=== PATIENT | female | born 1990 | race Hispanic/Latino ===

== ENCOUNTER 2018-11-15 07:52 | Emergency (ER) | payer SELFPAY ==
[2018-11-15 08:33] LABS: #Basophils 0.1 thou/uL (0.0-0.2); #Eosinphils 0.2 thou/uL (0.0-0.7); #Lymphocytes 1.5 thou/uL (1.20-3.40); #Monocytes 0.5 thou/uL (0.11-0.59); %Basophils 0.9 % (0.0-1.0); %Lymphocytes 23.4 % (21.0-51.0); %Monocytes 7.9 % (0.0-10.0); %Neutrophils 64.8 % (42.0-75.0); Hemoglobin 14.9 g/dL (12.0-16.0); Mean Corpuscular HGB CONC 33.6 g/dL (32.0-36.0); Mean Corpuscular Hemoglobin 30.9 pg (27.0-31.0); Mean Corpuscular Volume 92.1 fL (78.0-98.0); Platelet Count 214 thou/uL (130-400); RBC Distribution Width 11.4 % (11.5-14.5); Red Blood Cell (RBC) Count 4.83 mill/uL (4.20-5.40); White Blood Cell (WBC) Count 6.2 thou/uL (4.8-10.8)
[2018-11-15 08:53] LABS: ALT (SGPT) 17 U/L (8-55); AST (SGOT) 14 U/L (5-34); Albumin 4.2 g/dL (3.5-5.0); Alkaline Phosphatase 66 U/L (40-150); Anion Gap 14 mmol/L (10-20); BUN (Urea Nitrogen) 15 mg/dL (7.0-18.7); Bilirubin, Total 0.7 mg/dL (0.2-1.2); Calc. Creatinine Clearance 0 mL/min (70-130); Calcium 8.8 mg/dL (7.8-10.44); Carbon Dioxide 22 mmol/L (22-29); Chloride 105 mmol/L (98-107); Estimated GFR-MDRD 84; Glucose 110 mg/dL (70-105); Lipase 12 U/L (8-78); Potassium 3.7 mmol/L (3.5-5.1); Protein, Total 7.2 g/dL (6.0-8.3); Sodium 137 mmol/L (136-145)
[2018-11-15 09:38] LABS: Bilirubin Negative (Negative); Blood, Urine Negative (Negative); Clarity CLEAR (Clear); Glucose, Urine (Dipstick) Negative (Negative); Leukocyte Negative (Negative); Nitrite Negative (Negative); Protein, Urine (Dipstick) Negative (Neg-Trace); Specific Gravity, Urine 1.027 (1.002-1.036); pH, Urine 6.5 (5.0-9.0)
[2018-11-15 10:05] LABS: Pregnancy Test - Urine (BHCG) Negative (Negative); Pregu Control Bar Appear? YES (CONTROL BAR); Specific Gravity 1.027 (1.002-1.036)
[2018-11-15 10:06] LABS: Pregu Control Background? CLEAR/WHITE (CLR/WHITE)
== END 2018-11-15 10:15 | disposition home or self-care (01) ==
LOC: ERS 07:52
DX: F41.9 Anxiety disorder, unspecified (principal); F32.9 Major depressive disorder, single episode, unspecified; Z87.891 Personal history of nicotine dependence
CPT/HCPCS: 36415; 80053; 81003; 81025; 83690; 84484; 85025; 93005

== ENCOUNTER 2019-03-29 10:10 | Emergency (ER) | payer SELFPAY ==
[~2019-03-29 10:10] MED LIST: ISOVUE-370 76%-LOCM 1 ML ONE
--- NOTE | 2019-03-29 10:51 | RAD ---
XR Chest 1 View Portable HISTORY: Chest pain COMPARISON: 10/10/2010 study FINDINGS: Heart size is within normal limits for portable technique. Subsegmental atelectatic change seen in the lung bases. No focal infiltrative process. Suboptimal inspiration. IMPRESSION: Subsegmental atelectasis in the lung bases probably on the basis of suboptimal inspiratio n.
[2019-03-29 11:03] LABS: #Basophils 0.1 thou/uL (0.0-0.2); #Eosinphils 0.1 thou/uL (0.0-0.7); #Lymphocytes 1.5 thou/uL (1.20-3.40); #Monocytes 0.6 thou/uL (0.11-0.59); #Neutrophils 4.9 thou/uL (1.40-6.50); %Basophils 0.7 % (0.0-1.0); %Eosinophils 1.3 % (0.0-10.0); %Lymphocytes 20.6 % (21.0-51.0); %Monocytes 8.9 % (0.0-10.0); %Neutrophils 68.4 % (42.0-75.0); Hemoglobin 15.5 g/dL (12.0-16.0); Mean Corpuscular HGB CONC 33.5 g/dL (32.0-36.0); Mean Corpuscular Hemoglobin 30.6 pg (27.0-31.0); Mean Corpuscular Volume 91.4 fL (78.0-98.0); Platelet Count 205 thou/uL (130-400); RBC Distribution Width 11.3 % (11.5-14.5); Red Blood Cell (RBC) Count 5.05 mill/uL (4.20-5.40); White Blood Cell (WBC) Count 7.1 thou/uL (4.8-10.8)
[2019-03-29 11:29] LABS: ALT (SGPT) 26 U/L (8-55); AST (SGOT) 17 U/L (5-34); Albumin 4.3 g/dL (3.5-5.0); Alkaline Phosphatase 60 U/L (40-150); Anion Gap 12 mmol/L (10-20); BUN (Urea Nitrogen) 13 mg/dL (7.0-18.7); Bilirubin, Total 0.7 mg/dL (0.2-1.2); CK (CPK) 31 U/L (29-168); Calc. Creatinine Clearance 0 mL/min (70-130); Calcium 9.8 mg/dL (7.8-10.44); Carbon Dioxide 23 mmol/L (22-29); Chloride 104 mmol/L (98-107); Estimated GFR-MDRD 90; Globulin 2.8 g/dL (2.4-3.5); Glucose 120 mg/dL (70-105); Potassium 4.3 mmol/L (3.5-5.1); Protein, Total 7.1 g/dL (6.0-8.3); Sodium 135 mmol/L (136-145)
[2019-03-29 11:53] LABS: BHCG - Serum Negative (NEGATIVE); Pregs Control Background? CLEAR/WHITE (CLR/WHITE); Pregs Control Bar Appear? YES (CONTROL BAR)
--- NOTE | 2019-03-29 14:05 | CT ---
CT ANIOGRAM OF THE CHEST: 03/29/19 HISTORY: Evaluate for pulmonary artery embolism. Constant chest pain and pressure. Shortness of breath. Sympt oms x4 days. TECHNIQUE: CT angiogram of the chest is performed in the axial plane. Three dimensional reformatted images are s ubmitted for interpretation. FINDING: No mediastinal mass, lymphadenopathy or hematoma. Heart size is within normal limits. No significant pericardial fluid. The thoracic aorta and upper abdominal aorta have a normal caliber. No periaortic fat stranding. Gallbladder is surgically absent. The visualized solid organs are grossly unremarkable. Possible hepa tic steatosis. Trachea and central bronchi are patent. In the left lung, no masses or consolidation. In the right lung, no masses or consolidation. No evidence of pneumothorax or pleural effusion. No lytic or blastic lesions in the osseous structures. Limited evaluation of the pulmonary arterial system due to timing of bolus. There is adequate contras t opacification of the pulmonary arterial system to the level of the proximal lobar arteries. Evaluat ion of the mid to distal lobar artery as well as the segmental and subsegmental branches is limited d ue to poor timing of bolus. No evidence of pulmonary artery embolism to the level of the proximal lob ar arteries. IMPRESSION: 1. Limited evaluation due to contrast bolus timing. No definite central PE. 2. If there is still concern, consider VQ scan or repeat imaging with better timing of bolus. POS: [facility]
--- NOTE | 2019-04-01 12:54 | EKG ---
Test Reason : Blood Pressure : / mmHG Vent. Rate : 078 BPM Atrial Rate : 078 BPM P-R Int : 138 ms QRS Dur : 084 ms QT Int : 364 ms P-R-T Axes : 009 -02 000 degrees QTc Int : 414 ms Normal sinus rhythm Cannot rule out Anterior infarct , age undetermined Abnormal ECG Confirmed by RILEY SILVA, ADAL ([id number]), telegraph editor FITZ CHRISTINE ([id number]) on 04/01/2019 12:54:20 PM Referred By: Confirmed By:ADAL LIN MD
== END 2019-03-29 15:24 | disposition home or self-care (01) ==
LOC: ERS 10:10
DX: R07.89 Other chest pain (principal); F41.9 Anxiety disorder, unspecified; F32.9 Major depressive disorder, single episode, unspecified; F17.210 Nicotine dependence, cigarettes, uncomplicated; J45.909 Unspecified asthma, uncomplicated
CPT/HCPCS: 36415; 71045; 71275; 80053; 82550; 83880; 84484; 84703; 85025; 85379; 93005; Q9966

== ENCOUNTER 2019-04-27 12:24 | Emergency (ER) | payer SELFPAY | END 2019-04-27 13:40 | disposition home or self-care (01) | LOC: ERS 12:24 | DX: E03.9 Hypothyroidism, unspecified (principal); J45.909 Unspecified asthma, uncomplicated; F41.9 Anxiety disorder, unspecified; F32.9 Major depressive disorder, single episode, unspecified; F17.290 Nicotine dependence, other tobacco product, uncomplicated; Z79.899 Other long term (current) drug therapy | CPT/HCPCS: 93005 ==

== ENCOUNTER 2020-10-13 09:40 | Emergency (ER) | payer OTHER, SELFPAY ==
[2020-10-13 23:55] LABS: SARS-CoV-2 MS2 Positive; SARS-CoV-2 N Gene Negative; SARS-CoV-2 S Gene Negative; SARS-CoV-2 by NAA Not Detected (NotDetected); SARS-CoV-2 orf1ab Negative
== END 2020-10-13 10:10 | disposition home or self-care (01) ==
LOC: ERS 09:40
DX: J34.89 Other specified disorders of nose and nasal sinuses (principal); Z20.822 Contact with and (suspected) exposure to COVID-19; Z87.891 Personal history of nicotine dependence
CPT/HCPCS: 87635; 99284; U0003

== ENCOUNTER 2021-10-22 07:50 | Emergency (ER) | payer OTHER | END 2021-10-22 09:50 | disposition home or self-care (01) | LOC: ERS 07:50 | DX: H81.10 Benign paroxysmal vertigo, unspecified ear (principal); J45.909 Unspecified asthma, uncomplicated; E03.9 Hypothyroidism, unspecified | CPT/HCPCS: 99283 ==